=== PATIENT | female | born 1995 | race Caucasian/White ===

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

== ENCOUNTER 2017-02-24 20:55 | Emergency (ER) | payer OTHER ==
[~2017-02-24] VITALS: Ht 157.5 cm; Wt 98.9 kg
[2017-02-24 22:58] VITALS: BP 127/90
== END 2017-02-24 22:58 | disposition home or self-care (01) ==
LOC: ED 20:55
DX: R11.10 Vomiting, unspecified (principal); R19.7 Diarrhea, unspecified; R10.9 Unspecified abdominal pain; E66.01 Morbid (severe) obesity due to excess calories
CPT/HCPCS: Q0164

== ENCOUNTER 2017-07-14 21:30 | Emergency (ER) | payer OTHER ==
[~2017-07-14] VITALS: Ht 162.6 cm; Wt 94.8 kg
[2017-07-14 22:13] VITALS: Ht 162.6 cm; Wt 94.8 kg
[2017-07-14 23:56] LABS: UA SPECIFIC GRAVITY >=1.030 (1.005-1.035); microscopic required? YES; urine erythrocyte 3+ (NEGATIVE)
[2017-07-15 00:23] VITALS: BP 112/54
== END 2017-07-15 00:33 | disposition home or self-care (01) ==
LOC: ED 21:30
PROVIDERS: Emergency Medicine
DX: N39.0 Urinary tract infection, site not specified (principal); E11.9 Type 2 diabetes mellitus without complications; G43.909 Migraine, unspecified, not intractable, without status migrainosus; Z91.040 Latex allergy status
CPT/HCPCS: 82962; 87491; 87591; J1885

== ENCOUNTER 2017-10-23 00:18 | Emergency (ER) | payer OTHER ==
[~2017-10-23] VITALS: Ht 157.5 cm; Wt 93.9 kg
[2017-10-23 01:25] VITALS: BP 136/89
== END 2017-10-23 01:25 | disposition home or self-care (01) ==
LOC: ED 00:18
DX: T78.1XXA Other adverse food reactions, not elsewhere classified, initial encounter (principal); E11.9 Type 2 diabetes mellitus without complications; G43.909 Migraine, unspecified, not intractable, without status migrainosus; Z91.040 Latex allergy status; X58.XXXA Exposure to other specified factors, initial encounter

== ENCOUNTER 2018-11-24 12:15 | Emergency (ER) | payer OTHER ==
[~2018-11-24] VITALS: Ht 157.5 cm; Wt 96.6 kg
[2018-11-24 12:20] VITALS: Ht 157.5 cm; Wt 96.6 kg
[2018-11-24 15:38] VITALS: BP 125/78
== END 2018-11-24 15:39 | disposition home or self-care (01) ==
LOC: ED 12:15
DX: S39.012A Strain of muscle, fascia and tendon of lower back, initial encounter (principal); E11.9 Type 2 diabetes mellitus without complications; F32.9 Major depressive disorder, single episode, unspecified; G43.909 Migraine, unspecified, not intractable, without status migrainosus; Z91.040 Latex allergy status; X58.XXXA Exposure to other specified factors, initial encounter; Y93.89 Activity, other specified; Y92.89 Other specified places as the place of occurrence of the external cause; Y99.8 Other external cause status
CPT/HCPCS: 82962; J1885; J3010